=== PATIENT | female | born 1990 | race Caucasian/White ===

== ENCOUNTER 2020-06-20 13:42 | Outpatient (CLI) | payer OTHER ==
[~2020-06-20] VITALS: Ht 182.9 cm; Wt 123.4 kg
[2020-06-20 14:13] VITALS: BP 114/67
[2020-06-20] MEDS ORDERED: BAYE81TA10 PO (14:28)
[2020-06-20] MEDS ORDERED: MAPA500T2 PO (14:28)
[2020-06-20] MEDS ORDERED: PREN1CHW6 PO (14:28)
--- NOTE | 2020-06-20 15:59 | IPNPDOC ---
Text Note Date of Service The patient was seen on 06/20/20. NOTE 30yo at 22 wks who presents with c/o heart palpitation yesterday that resolved spontaneously and swelling. Denies vaginal bleeding, LOF, ctx, headaches or visual changes O: vss, AF Reassuring status, +doptone abd: gravid, nttp cx: deferred A/P: 30yo at 22 wks, normotensive Reassuring status -home with PTL precautions and reassurance -f/u at OB appt Roxana Odell MD VS,Moira, I+O VS, Moira, I+O Vital Signs Date Time Temp Pulse Resp B/P (MAP) Pulse Ox O2 Delivery O2 Flow Rate FiO2 06/20/20 14:13 97.9 84 18 114/67 (83) ROXANA ODELL MD. Jun 20, 2020 15:59
== END 2020-06-20 16:00 | disposition home or self-care (01) ==
LOC: M LDO 13:42
PROVIDERS: ATTEND Obstetrics & Gynecology
DX: O12.02 Gestational edema, second trimester (principal); Z91.011 Allergy to milk products; Z88.2 Allergy status to sulfonamides; Z88.8 Allergy status to other drugs, medicaments and biological substances
CPT/HCPCS: G0378; G0463

== ENCOUNTER → 2020-06-28 | Outpatient (REF) | payer OTHER ==
[~2020-06-28] MED LIST: BAYE81TA10 PO; MAPA500T2 PO; PREN1CHW6 PO
== END ==
LOC: M SFHCWAGY 16:45
PROVIDERS: ATTEND Advanced Practice Midwife
DX: O09.292 Supervision of pregnancy with other poor reproductive or obstetric history, second trimester (principal)

== ENCOUNTER → 2020-07-05 | Outpatient (CLI) | payer OTHER ==
--- NOTE | 2020-07-07 18:05 | REP ---
INDICATION: ANATOMY COMPARISON: None. TECHNIQUE: Transabdominal obstetrical ultrasound with color Doppler evaluation. FINDINGS: Examination demonstrates a single live intrauterine in variable presentation. motion is identified by technologist. Placenta is noted posterior and grade 1 without evidence for placenta previa or abruption. Amniotic fluid volume is normal. Cervix measures 3.6 cm in length and appears closed.. Gestational age by LMP 23 weeks 5 days with JESUS 10/27/2020. Gestational age by current measurements 23 weeks 6 days with JESUS 10/26/2020. FHR equals 147 beats per minute. BPD: 5.9 cm 24 weeks 1 day HC: 21.4 cm 23 weeks 3 days AC: 18.7 cm 23 weeks 4 days FL: 4.2 cm 23 weeks 5 days HL: 4.0 cm 24 weeks 1 day HC/AC: 1.14 Estimated weight 613 grams (38thpercentile). Anatomical assessment demonstrates normal structures including cranium, choroid plexus, cavum, cerebellum/posterior fossa, facial features, lungs, diaphragm, stomach, cord insertion/three-vessel cord, kidneys/bladder, spine, and extremities. IMPRESSION: 1. Single live intrauterine in variable presentation demonstrating appropriate estimated weight and growth. 2. Limited evaluation of the heart/ventricular outflow tracts noted. Remainder of the anatomical assessment is complete and normal. <Electronically signed by Steve Jones > 07/07/20 [id number]
== END ==
LOC: M WHC 11:01
PROVIDERS: ATTEND Advanced Practice Midwife
DX: Z36.9 Encounter for antenatal screening, unspecified (principal); Z3A.23 23 weeks gestation of pregnancy

== ENCOUNTER → 2020-07-19 | Outpatient (CLI) | payer OTHER ==
[2020-07-19 08:04] LABS: HEMATOCRIT 31.7 % (36.0-47.0); HEMOGLOBIN 10.6 g/dl (12.0-15.5); MEAN CORPUSCULAR HEMOGLOBIN 28.2 pg (27.0-33.0); MEAN CORPUSCULAR HGB CONC 33.4 g/dl (32.0-36.5); MEAN CORPUSCULAR VOLUME 84.3 fl (80.0-96.0); PLATELET COUNT, AUTOMATED 251 10^3/uL (150-450); RED BLOOD COUNT 3.76 10^6/uL (4.00-5.40); WHITE BLOOD COUNT 12.1 10^3/uL (4.0-10.0)
== END ==
LOC: M LAB 06:57
PROVIDERS: ATTEND Advanced Practice Midwife
DX: O09.292 Supervision of pregnancy with other poor reproductive or obstetric history, second trimester (principal); Z3A.00 Weeks of gestation of pregnancy not specified

== ENCOUNTER → 2020-07-26 | Outpatient (REF) | payer OTHER | LOC: M SFHCWAGY 16:48 | PROVIDERS: ATTEND Advanced Practice Midwife | DX: O99.212 Obesity complicating pregnancy, second trimester (principal) | CPT/HCPCS: 87088; 87186; G0463 ==

== ENCOUNTER → 2020-08-13 | Outpatient (CLI) | payer OTHER ==
--- NOTE | 2020-08-13 16:03 | REP ---
INDICATION: F/U ANATOMY. COMPARISON: 07/05/2020. TECHNIQUE: Real-time sonographic evaluation of the gravid uterus performed. FINDINGS: Estimated gestational age is29 weeks 2 days, EDC 10/27/2020. Today's measurements indicate appropriate growth. Presentation: Breech Placenta posterior, grade 1, without evidence of placenta previa. heart rate is recorded at 152 beats per minute. Amniotic fluid is subjectively normal. VISHAL 19.7, normal 9.1-23.2. Closed cervical length is measured at 3.6 cm. Biometry chart: BPD: 76 mm, 30 weeks 3 days, 67th percentile. HC: 279 mm, 30 weeks 3 days, 68th percentile AC: 253 mm, 29 weeks 3 days, 54th percentile Femur length: 54 mm, 28 weeks 3 days, 31st percentile HC to AC ratio: 1.10, normal range 0.98-1.17.. Estimated weight: 1368g, 37th percentile. anatomy: As a follow-up to the prior exam, the four-chamber heart and ventricular outflow tracts are still not clearly visualized due to position. The stomach, kidneys and bladder are visualized and are again grossly unremarkable. IMPRESSION: Viable single intrauterine gestation as above. Once again the four-chamber heart and ventricular outflow tracts are not well seen due to position. <Electronically signed by Beltran Awad > 08/13/20 [id number]
== END ==
LOC: M WHC 13:53
PROVIDERS: ATTEND Advanced Practice Midwife
DX: O09.293 Supervision of pregnancy with other poor reproductive or obstetric history, third trimester (principal); Z3A.29 29 weeks gestation of pregnancy

== ENCOUNTER → 2020-09-03 | Outpatient (CLI) | payer OTHER ==
[~2020-09-03] MED LIST changes: +ASPI81CH33 PO
--- NOTE | 2020-09-03 17:23 | REP ---
INDICATION: F/U ANATOMY. COMPARISON: Comparison study August 13, 2020. Known JESUS October 27, 2020 the. TECHNIQUE: Transabdominal obstetric sonography. FINDINGS: Scanning through the gravid uterus demonstrates a viable single intrauterine gestation in cephalic lie. motion is observed and heart rate is recorded at 152 beats per minute. A 2 posterior placenta is seen, grade 2, without evidence of placenta previa. Closed cervical length is measured at 4.1 cm transabdominally. No extrauterine abnormality is observed. Amniotic fluid is subjectively normal.. Four-chamber heart views and left ventricular outflow tract views were visualized and appear normal. In conjunction with the prior study, anatomic survey is felt to be complete.. Biometry chart: BPD 8.2 cm, 32 weeks 6 days Head circumference 30.5 cm, 34 weeks 0 days Abdominal circumference 29.3 cm, 33 weeks 2 days Femur length 6.3 cm, 32 weeks 4 days Humeral length 5.6 cm, 32 weeks 4 days HC AC ratio normal 1.04 Cephalic index normal 0.74 Estimated weight 2122 g, 4 lb 10 oz, 66 percentile for 32 weeks 2 days IMPRESSION: Viable single intrauterine gestation at 33 weeks 0 days by today's composite sonographic criteria. JESUS by today's sonography October 22, 2020. No complication identified. Expected gestational age estimate based on prior sonography is 32 weeks 2 days. JESUS by prior sonography October 27, 2020. Appropriate interval growth. <Electronically signed by Jason Bond > 09/03/20 [id number]
== END ==
LOC: M WHC 13:27
PROVIDERS: ATTEND Advanced Practice Midwife
DX: O99.213 Obesity complicating pregnancy, third trimester (principal); E66.9 Obesity, unspecified; Z3A.33 33 weeks gestation of pregnancy
CPT/HCPCS: 76816; 90471; 90715; G0463

== ENCOUNTER 2020-09-08 22:39 | Outpatient (CLI) | payer OTHER ==
[~2020-09-08] VITALS: Ht 182.9 cm; Wt 125.2 kg
[~2020-09-08 22:39] MED LIST changes: -ASPI81CH33 PO
[2020-09-08 23:26] VITALS: BP 122/67
[2020-09-08 23:28] VITALS: BP 128/75
[2020-09-08 23:43] VITALS: BP 139/83
--- NOTE | 2020-09-09 00:06 | IPNPDOC ---
Obstetrical Progress Note Date of Service Sep 09, 2020 Subjective 30 yo at 33 1/7 weeks by LMP c/w 10 week ultrasound presents after having OP=742/95 at home. She has a h/o preeclampsia with her prior . She denies MCDANIEL's. Objective Vital Signs Date Time Temp Pulse Resp B/P (MAP) Pulse Ox O2 Delivery O2 Flow Rate FiO2 09/08/20 23:43 88 139/83 (101) 09/08/20 23:26 97.4 16 Room Air Assessment Variability: Moderate Accelerations: Positive Decelerations: None Heart Rate Tracing: Category I Tocometer Contractions: No Assessment and Plan Status: Reassuring Additional Comments Urine P/C = 0.41 30 yo at 33 1/7 weeks with elevated blood pressure, possible preeclampsia fu office this week. Continue to monitor BP at home MEDINA SHAH MD Sep 09, 2020 00:06
[2020-09-09 00:19] LABS: HEMOGLOBIN 10.1 g/dl (12.0-15.5); MEAN CORPUSCULAR HEMOGLOBIN 27.3 pg (27.0-33.0); MEAN CORPUSCULAR HGB CONC 32.6 g/dl (32.0-36.5); MEAN CORPUSCULAR VOLUME 83.8 fl (80.0-96.0); PLATELET COUNT, AUTOMATED 239 10^3/uL (150-450); WHITE BLOOD COUNT 9.8 10^3/uL (4.0-10.0)
[2020-09-09 00:21] LABS: TOTAL PROTEIN,RANDOM URINE 21.7 MG/DL (0.0-12.0)
[2020-09-09 00:46] LABS: ALT/SGPT 9 U/L (12-78); BILIRUBIN,TOTAL 0.3 MG/DL (0.2-1.0); CREATININE FOR GFR 0.66 MG/DL (0.55-1.30); GLOMERULAR FILTRATION RATE > 60.0 (>60); LDH LACTATE DEHYDROGENASE 136 U/L (84-246); URIC ACID 2.7 MG/DL (2.6-6.0)
== END 2020-09-09 01:00 | disposition home or self-care (01) ==
LOC: M LDO 22:39
PROVIDERS: ATTEND Specialist
DX: O26.893 Other specified pregnancy related conditions, third trimester (principal); R03.0 Elevated blood-pressure reading, without diagnosis of hypertension; Z3A.33 33 weeks gestation of pregnancy
CPT/HCPCS: 36415; 59025; 82247; 82565; 82570; 83615; 84156; 84450; 84460; 84550; 85027; G0378; G0463

== ENCOUNTER 2020-09-15 22:05 | Outpatient (CLI) | payer OTHER ==
[2020-09-15] VITALS (7 sets, daily range): BP systolic 107–136; BP diastolic 55–87
[~2020-09-15] VITALS: Ht 185.4 cm; Wt 124.5 kg
[2020-09-16] VITALS (18 sets, daily range): BP systolic 104–169; BP diastolic 52–86
[2020-09-16] MEDS ORDERED: FIORICET TAB PO PRN (01:05)
--- NOTE | 2020-09-16 01:22 | IPNPDOC ---
Obstetrical Progress Note Date of Service Sep 16, 2020 Subjective 30yo at 34+1 weeks EGA. C/o mild MCDANIEL, and has concern for pre-eclampsia given her hx of pre-eclampsia in previous . No visual changes, scotomata, RUQ pain, sob, cp. +FM. No VB/LOF/uctx. PN course: normotensive during all PN visits obesity; GDM screening negative h/o pre-e; taking ASA 81mg daily PMH: migraines, anxiety, asthma SH: left knee, TMJ, cholecystectomy, nephrolithiasis Meds: PNV All: hydrocortisone, lactose, sulfamethoxazole, tramadol, trimethoprim O: See vitals signs records Gen: A&Ox4. H: RRR no m/g/r L: CTA b/l no w/c/r/r Abd: soft,nt,nd, FH c/wd and nt Ext: no c/c/e, normal DTR's A/P: 30yo at 34+1 weeks. Possible GHTN/pre-e. Reassuring status. -pre-e labs -Continue to monitor closely. -Fioricet for MCDANIEL Tracy Gilliland DO Objective Vital Signs Date Time Temp Pulse Resp B/P (MAP) Pulse Ox O2 Delivery O2 Flow Rate FiO2 09/15/20 22:56 92 18 135/87 (103) 09/15/20 22:25 97.8 JER GILLILAND DO Sep 16, 2020 01:22
[2020-09-16 01:37] LABS: HEMATOCRIT 30.7 % (36.0-47.0); HEMOGLOBIN 9.9 g/dl (12.0-15.5); MEAN CORPUSCULAR HGB CONC 32.2 g/dl (32.0-36.5); MEAN CORPUSCULAR VOLUME 83.9 fl (80.0-96.0); PLATELET COUNT, AUTOMATED 231 10^3/uL (150-450); RED BLOOD COUNT 3.66 10^6/uL (4.00-5.40)
[2020-09-16 02:05] LABS: ALBUMIN 2.9 GM/DL (3.2-5.2); ALT/SGPT 10 U/L (12-78); BILIRUBIN,TOTAL 0.3 MG/DL (0.2-1.0); BLOOD UREA NITROGEN 4 MG/DL (7-18); CALCIUM LEVEL 7.8 MG/DL (8.5-10.1); CARBON DIOXIDE LEVEL 25 MEQ/L (21-32); CHLORIDE LEVEL 109 MEQ/L (98-107); CREATININE FOR GFR 0.58 MG/DL (0.55-1.30); GLOMERULAR FILTRATION RATE > 60.0 (>60); GLUCOSE, FASTING 76 MG/DL (70-100); LDH LACTATE DEHYDROGENASE 128 U/L (84-246); POTASSIUM SERUM 3.5 MEQ/L (3.5-5.1); SODIUM LEVEL 140 MEQ/L (136-145); TOTAL PROTEIN 6.4 GM/DL (6.4-8.2); URIC ACID 3.1 MG/DL (2.6-6.0)
[2020-09-16 02:07] LABS: TOTAL PROTEIN,RANDOM URINE 25.8 MG/DL (0.0-12.0)
--- NOTE | 2020-09-16 07:27 | IPNPDOC ---
Obstetrical Progress Note Date of Service Sep 16, 2020 Subjective Patient is no longer complaining of MCDANIEL. Rested comfortably overnight after having Fioricet. No visual changes, RUQ pain, sob, cp. +FM. Denies VB/LOF/uctx. Objective Vital Signs Date Time Temp Pulse Resp B/P (MAP) Pulse Ox O2 Delivery O2 Flow Rate FiO2 09/16/20 02:10 18 09/16/20 01:57 87 128/62 (84) 09/15/20 22:25 97.8 Assessment Heart Rate Tracing: Category I Tocometer Contractions: No Assessment and Plan Additional Comments Pre-eclampsia lab panel within normal limits. Pt currently does not meet criteria for GHTN / pre-e. Given her history, we'll continue with close outpatient follow up. Pt checks her BP at home. She will notify us sooner than her appt if BP's are approaching/at severe range and/or she if she is symptomatic with BP >140/90. Next appt 09/19/20. JER VARELA DO Sep 16, 2020 07:27
== END 2020-09-16 07:22 | disposition home or self-care (01) ==
LOC: M LDO 22:05
PROVIDERS: ATTEND Obstetrics & Gynecology
DX: O26.893 Other specified pregnancy related conditions, third trimester (principal); Z3A.34 34 weeks gestation of pregnancy; R51.9 Headache, unspecified; Z87.59 Personal history of other complications of pregnancy, childbirth and the puerperium
CPT/HCPCS: 36415; 59025; 80053; 82570; 83615; 84156; 84550; 85027; G0378; G0463

== ENCOUNTER 2020-09-25 20:04 | Outpatient (CLI) | payer OTHER ==
[~2020-09-25] VITALS: Ht 182.9 cm; Wt 123.4 kg
[~2020-09-25 20:04] MED LIST changes: -ASPI81CH33 PO; -ESGI1TAB PO
[2020-09-25] MEDS ORDERED: FIORICET TAB PO ONE (20:30)
[2020-09-25] MEDS ORDERED: ASPI81CH33 PO (20:54)
[2020-09-25 20:59] LABS: TOTAL PROTEIN,RANDOM URINE 36.3 MG/DL (0.0-12.0)
[2020-09-25] MEDS: BETAMETHASONE SOLUSPAN 6MG/ML 5ML VIAL (J0702 PER 3MG) IM SCH (21:14)
[2020-09-25 21:21] LABS: HEMATOCRIT 30.9 % (36.0-47.0); HEMOGLOBIN 9.9 g/dl (12.0-15.5); MEAN CORPUSCULAR HEMOGLOBIN 26.6 pg (27.0-33.0); MEAN CORPUSCULAR VOLUME 83.1 fl (80.0-96.0); PLATELET COUNT, AUTOMATED 235 10^3/uL (150-450); RED BLOOD COUNT 3.72 10^6/uL (4.00-5.40); WHITE BLOOD COUNT 9.5 10^3/uL (4.0-10.0)
[2020-09-25 21:44] LABS: ALT/SGPT 9 U/L (12-78); BILIRUBIN,TOTAL 0.3 MG/DL (0.2-1.0); CREATININE FOR GFR 0.57 MG/DL (0.55-1.30); GLOMERULAR FILTRATION RATE > 60.0 (>60); LDH LACTATE DEHYDROGENASE 217 U/L (84-246); URIC ACID 2.8 MG/DL (2.6-6.0)
--- NOTE | 2020-09-25 22:40 | HPE ---
HISTORY AND PHYSICAL DATE OF ADMISSION: 09/25/2020 HISTORY OF PRESENT ILLNESS: Iona is a 30-year-old 2, para 1, 0, 0, 1 at 35 and 3/7 weeks gestation, EDC of 10/27/20 based on first trimester ultrasound. She presents to labor and delivery today with report of elevated blood pressure at home and mild headache that was not resolved with Tylenol. She denies vaginal bleeding, leakage of fluid. The fetus has been active. She denies regular painful contractions. She denies visual disturbances, epigastric pain and right upper quadrant discomfort. Her care was initiated in [place] with a transfer of care to [facility] at 22 weeks gestation. course complicated by a history of preeclampsia, baseline spot urine 0.11, currently taking ASA 81 mg daily, obesity, right-sided hearing loss. Current diagnosis of preeclampsia with spot urine of 0.34. OBSTETRIC HISTORY: In October 2017, 37 weeks and 1 day, 7 pound 1 ounce female, vaginal delivery following an induction for preeclampsia. OBSTETRIC LABS: A+. Antibody screen negative. Rubella immune. Hepatitis B surface antigen negative. HIV negative. Varicella immune. T. Pallidum negative. Urine culture positive for E. coli. Early gestational diabetic screening 142. 3-hour glucose tolerance test 95, 131, 134 and 112. She is cystic fibrosis carrier negative. She did undergo a repeat 3-hour glucose tolerance test and did pass that as well in the third trimester. PAST MEDICAL HISTORY: Obesity, hearing loss, migraine headaches, anxiety and asthma. PAST SURGICAL HISTORY: Knee surgery, TMJ surgery, cholecystectomy and kidney stones. FAMILY HISTORY: Non-Hodgkin's lymphoma, heart disease, diabetes and hypertension. SOCIAL HISTORY: The patient is . She is a nonsmoker. Denies alcohol and drug use. No history of any sexually transmitted infection. She denies history of abuse sexual or emotional. ALLERGIES: 1. Bactrim causing hives. 2. Cortisone causing inflammation at injection site. 3. Toradol which causes itching. OBJECTIVE: Temperature not recorded, blood pressure elevated 147/89, 153/89, 149/88, 143/80, pulse 90, respirations 18. heart rate 140 with moderate variability and positive accelerations, no decelerations. There is an occasional contraction. Abdomen is gravid. Cephalic presentation. Estimated weight 2700 grams. Sterile vaginal exam deferred. LABORATORY STUDIES: Hemoglobin 9.9, hematocrit 30.9, platelets 235,000. Preeclamptic labs are normal. Creatinine 0.57. Uric acid 2.8. AST 5, ALT 9. LDH 217. Spot urine 0.34. ASSESSMENT: Intrauterine at 35 and 3/7 weeks. heart rate category 1 preeclampsia. PLAN: Betamethasone injection for lung maturity. Fioricet for headache. Keep overnight until beta complete. Induction of labor scheduled for 37 weeks. Begin antepartum testing in the office. Continue with growth ultrasounds every three weeks. Observe overnight. The plan of care has been reviewed with the patient. She is agreeable to this plan.
[2020-09-26 02:00] VITALS: BP 120/64
[2020-09-26] MEDS ORDERED: FIORICET TAB PO ONE ×2 (02:50→10:10)
[2020-09-26 06:01] VITALS: BP 134/79
[2020-09-26 09:50] VITALS: BP 136/80
[2020-09-26] MEDS: ONDANSETRON 4 MG TAB PO SCH ×2 (12:42→18:10)
[2020-09-26 14:04] VITALS: BP 148/80
[2020-09-26 18:24] VITALS: BP 138/81
--- NOTE | 2020-09-26 19:04 | IPNPDOC ---
Text Note Date of Service The patient was seen on 09/26/20. NOTE I assumed care of Iona this morning at 0730 with the plan of care being to m onitor for improvement of headache, monitor bp's, and administer 2 doses of betamethasone 12mg IM. In brief, she is a 30yo with SIUP at 35w4d having a prior dx of pre-eclampsia withOUT severe features. She has PMhx significant for migraines and it has been an ongoing task trying to tease apart whether she has worsening of pre-eclampsia vs continuation of her normal MCDANIEL/migraine pattern. Thankfully, on presentation labs were performed and found to be very stable with normal LFTs/creatinine/plt and urine prot:creat 0.34 (prior at 33wk was 0.41). Her bp's since she presented last night have been mostly normotensive, occasionally mild range. Her MCDANIEL improved with fioricet this morning. She has had reactive NSTs, so status is reassuring. After 2nd dose of betamethasone 12mg IM this evening, she will be ready for discharge home with plan for close follow up with APFTs in the office and IOL is scheduled for 10/06/20. Return precautions discussed. Encouraged her to take iron for her anemia. Bren Loyd MD VS,Moira I+O VS, Moira I+O Laboratory Tests 09/25/20 20:52 Vital Signs Date Time Temp Pulse Resp B/P (MAP) Pulse Ox O2 Delivery O2 Flow Rate FiO2 09/26/20 18:24 98.4 83 20 138/81 (100) 100 Room Air I&O- Last 24 Hours up to 6 AM 09/26/20 06:00 Output Total 100 ml Balance -100 ml Bren Loyd MD Sep 26, 2020 19:04
[2020-09-26] MEDS ORDERED: ESGI1TAB PO (19:25)
[2020-09-26 20:49] VITALS: BP 134/77
[2020-09-26] MEDS: BETAMETHASONE SOLUSPAN 6MG/ML 5ML VIAL (J0702 PER 3MG) IM SCH (21:01)
[2020-10-09] MEDS ORDERED: IBUP80TA PO (07:58)
[2020-10-09] MEDS ORDERED: DOK1CAP7 PO (07:58)
[2020-10-09] MEDS ORDERED: CEPH500C PO (07:58)
[2020-10-09] MEDS ORDERED: LABE20TAB PO (07:58)
[2020-10-09] MEDS ORDERED: FERR325T3 PO (08:15)
== END 2020-09-26 21:14 | disposition home or self-care (01) ==
LOC: M LDO 20:04
PROVIDERS: ATTEND Advanced Practice Midwife
DX: O14.03 Mild to moderate pre-eclampsia, third trimester (principal); Z3A.35 35 weeks gestation of pregnancy; O99.213 Obesity complicating pregnancy, third trimester; E66.9 Obesity, unspecified; Z90.49 Acquired absence of other specified parts of digestive tract; O99.353 Diseases of the nervous system complicating pregnancy, third trimester; G43.909 Migraine, unspecified, not intractable, without status migrainosus
CPT/HCPCS: 36415; 59025; 76816; 82247; 82565; 82570; 83615; 84156; 84450; 84460; 84550; 85027; 86780; 86850; 86900; 86901; 87081; 96372; G0378; G0463; J0702

== ENCOUNTER → 2020-09-25 | Outpatient (CLI) | payer OTHER ==
[~2020-09-25] MED LIST changes: +ASPI81CH33 PO; +ESGI1TAB PO
--- NOTE | 2020-09-25 09:25 | REP ---
INDICATION: PRE ECLAMPSIA,GROWTH COMPARISON: 09/03/2020 TECHNIQUE: Transabdominal obstetrical ultrasound with color Doppler evaluation. FINDINGS: Examination demonstrates a single live intrauterine in cephalic presentation. motion is identified by technologist. Placenta is noted posterior and grade 2 without evidence for placenta previa or abruption. Amniotic fluid volume is normal. Cervix measures 4.0 cm in length and appears closed.. Gestational age by LMP and 1st U/S 35 weeks 3 days with JESUS 10/27/2020. Gestational age by current measurements 35 weeks 5 days with JESUS 10/25/2020. FHR equals 136 beats per minute. BPD: 9.1 cm at 36 weeks 5 days HC: 32.1 cm at there is 36 weeks 2 days AC: 31.4 cm at 35 weeks 2 days FL: 6.8 cm at 34 weeks 6 days HL: 6.2 cm at 35 weeks 5 days HC/AC: 1.02 Estimated weight 2679 grams (49thpercentile). VISHAL: 13.3 cm IMPRESSION: Single live advanced gestation in cephalic presentation demonstrating appropriate estimated weight and growth. <Electronically signed by Steve Jones > 09/25/20 0921
== END ==
LOC: M WHC 08:30
PROVIDERS: ATTEND Advanced Practice Midwife
DX: O14.93 Unspecified pre-eclampsia, third trimester (principal)

== ENCOUNTER → 2020-10-03 | Outpatient (CLI) | payer OTHER ==
[~2020-10-03] MED LIST changes: +ASPI81CH33 PO; +ESGI1TAB PO
== END ==
LOC: M LABSMTC 12:18
PROVIDERS: ATTEND Anesthesiology
DX: Z11.52 Encounter for screening for COVID-19 (principal)

== ENCOUNTER 2020-10-25 18:47 | Emergency (ER) | payer OTHER ==
[~2020-10-25] VITALS: Ht 182.9 cm; Wt 115.1 kg
[~2020-10-25 18:47] MED LIST changes: +CEPH500C PO; +DOK1CAP7 PO; +FERR325T3 PO; +IBUP80TA PO; +LABE20TAB PO
[2020-10-25 18:49] VITALS: BP 134/83
[2020-10-25] MEDS ORDERED: ACET-897 PO (19:11)
[2020-10-25] MEDS ORDERED: NS 1,000 ML IV ONE (19:45)
[2020-10-25] MEDS ORDERED: KETOROLAC 30 MG/ML 1ML VIAL IV ONE (20:10)
[2020-10-25 20:33] LABS: BASO # 0.1 10^3/uL (0.0-0.2); BASO % 0.7 % (0.0-1.0); EOS # 0.1 10^3/uL (0.0-0.5); EOS % 1.1 % (0.0-3.0); HEMATOCRIT 34.9 % (36.0-47.0); HEMOGLOBIN 10.7 g/dl (12.0-15.5); LYMPH # 2.4 10^3/uL (1.5-5.0); LYMPH % 31.9 % (24.0-44.0); MEAN CORPUSCULAR HEMOGLOBIN 25.6 pg (27.0-33.0); MEAN CORPUSCULAR HGB CONC 30.7 g/dl (32.0-36.5); MEAN CORPUSCULAR VOLUME 83.5 fl (80.0-96.0); MONO # 0.4 10^3/uL (0.0-0.8); MONO % 5.6 % (2.0-8.0); NEUTROPHILS # 4.6 10^3/uL (1.5-8.5); NEUTROPHILS % 60.6 % (36.0-66.0); PLATELET COUNT, AUTOMATED 336 10^3/uL (150-450); RED BLOOD COUNT 4.18 10^6/uL (4.00-5.40); WHITE BLOOD COUNT 7.5 10^3/uL (4.0-10.0)
[2020-10-25 20:34] LABS: URINE PREG TEST NEGATIVE (NEGATIVE)
[2020-10-25 20:44] LABS: INR 1.03; PARTIAL THROMBOPLASTIN TIME 26.1 SECONDS (24.2-38.5); PROTHROMBIN TIME 13.7 SECONDS (12.5-14.3)
[2020-10-25 21:05] LABS: ALBUMIN 3.7 GM/DL (3.2-5.2); ALT/SGPT 33 U/L (12-78); BILIRUBIN,DIRECT < 0.1 MG/DL (0.0-0.2); BILIRUBIN,TOTAL 0.3 MG/DL (0.2-1.0); BLOOD UREA NITROGEN 15 MG/DL (7-18); CALCIUM LEVEL 9.7 MG/DL (8.5-10.1); CARBON DIOXIDE LEVEL 26 MEQ/L (21-32); CHLORIDE LEVEL 109 MEQ/L (98-107); CREATININE FOR GFR 0.99 MG/DL (0.55-1.30); GLOMERULAR FILTRATION RATE > 60.0 (>60); GLUCOSE, FASTING 97 MG/DL (70-100); LIPASE 102 U/L (73-393); POTASSIUM SERUM 4.5 MEQ/L (3.5-5.1); SODIUM LEVEL 142 MEQ/L (136-145); TOTAL PROTEIN 7.3 GM/DL (6.4-8.2)
--- NOTE | 2020-10-25 21:35 | REPVR ---
PROCEDURE INFORMATION: Exam: US Nonobstetric Pelvis; Complete Exam date and time: 10/25/2020 9:16 PM Age: 30 years old Clinical indication: Pelvic pain; Additional info: Recent parturitipn 3 weeks prior now w/ pelvic/back pain TECHNIQUE: Imaging protocol: Transabdominal pelvic nonobstetric ultrasound. Complete exam. Real time ultrasound with image documentation. COMPARISON: US OBS FOLLOW UP OR REPEAT 09/25/2020 9:38 AM FINDINGS: Uterus/cervix: Uterus measures 11.2 x 5.7 x 9 cm. Endometrial echo complex measures 5.4 mm. Right adnexa: Right ovary measures 2.6 x 2.3 x 1.8 cm. Normal flow. Left adnexa: Left ovary measures 3.3 x 1.6 x 1.7 cm. Normal flow. Intraperitoneal space: No intraperitoneal fluid. Urinary bladder: Normal. IMPRESSION: Normal study. Electronically signed by: Rashawn Bhatt On 10/25/2020 21:34:52 PM
[2020-10-25] MEDS ORDERED: CIPR-249 PO (23:04)
[2020-10-25] MEDS ORDERED: LevoFLOXacin 750 MG TABLET PO ONE (23:05)
== END 2020-10-25 23:27 | disposition home or self-care (01) ==
LOC: M ED 18:47
DX: N39.0 Urinary tract infection, site not specified (principal)
CPT/HCPCS: 76856; 80048; 80076; 81001; 83605; 83690; 84703; 85025; 85610; 85730; 87040; 87088; 87186; 96374; 99283; J1885